=== PATIENT | female | born 1955 | race Caucasian/White ===

== ENCOUNTER 2017-03-24 07:30 | Inpatient (IN) ==
[2017-03-22 14:03] LABS: Basophils # (Auto) 0 K/mcL (0.0-0.3); Basophils % (Auto) 0.5 % (0.0-2.0); Eosinophils # (Auto) 0 K/mcL (0.0-0.7); Eosinophils % (Auto) 0.5 % (0.0-7.0); Granulocytes % (Auto) 57.4 % (38.0-78.0); Lymphocytes # (Auto) 1.8 K/mcL (1.5-4.8); Mean Cell Volume 95.3 fL (80.0-100.0); Mean Corpuscular HGB Conc 34.2 g/dL (31.0-36.0); Mean Corpuscular Hemoglobin 32.6 pg (26.0-34.0); Monocytes # (Auto) 0.6 K/mcL (0.1-0.9); Monocytes % (Auto) 10.6 % (1.0-12.0); Platelet Count 236 K/mcL (140-440); RBC 4.25 M/mcL (4.00-5.20); Red Cell Distribution Width 14.5 % (11.5-14.5)
[2017-03-22 14:39] LABS: Blood Urea Nitrogen 14 mg/dl (6-20)
[2017-03-22 14:58] LABS: Appearance,Urine CLEAR; Bilirubin,Urine NEG (NEG); Color,Urine YELLOW; Glucose,Urine (UA) NEGATIVE (NEG); Leukocyte Esterase,Urine NEG /uL (NEG); Nitrate,Urine NEG (NEG); Protein,Urine NEG (NEG); Specific Gravity,Urine 1.013 (1.000-1.035); Urine Blood NEG mg/dL (<0.03); Urobilinogen,Urine NEG (NEG)
[~2017-03-24 07:30] MED LIST: CELECOXIB 200 MG CAPSULE PO SCH; PREGABALIN 75 MG CAPSULE PO SCH; ceFAZolin 1 GM VIAL IV SCH; oxyCODONE 10 MG TAB.ER.12H PO SCH
[2017-03-24] MEDS ORDERED: KETOROLAC 30 MG, ROPIVACAINE HCL/PF 49.5 ML, EPINEPHrine 0.5 MG, 0.9 % SODIUM CHLORIDE ... IJ ONE (09:00)
[2017-03-24] MEDS ORDERED: ROPIVACAINE HCL/PF 20 ML VIAL IJ ONE (13:45)
[2017-03-24] MEDS ORDERED: DEXAMETHASONE 10 MG/ML VIAL IV ONE (13:45)
[2017-03-24] MEDS ORDERED: ONDANSETRON 4 MG/2 ML VIAL IV ONE (13:45)
[2017-03-24] MEDS ORDERED: PROPOFOL 200 MG/20 ML VIAL IV ONE (13:45)
[2017-03-24] MEDS ORDERED: TRANEXAMIC ACID 1,000 MG/10 ML VIAL IV ONE (13:45)
[2017-03-24] MEDS ORDERED: MIDAZOLAM 5 MG/5 ML VIAL IV ONE (13:45)
[2017-03-24] MEDS ORDERED: LIDOCAINE HCL/PF 100 MG/5 ML SYRINGE IV ONE (13:45)
[2017-03-24] MEDS ORDERED: LACTATED RINGERS 250 ML IV PRN (15:24)
[2017-03-24] MEDS ORDERED: ONDANSETRON 4 MG/2 ML VIAL IV PRN ×2 (15:24→15:41)
[2017-03-24] MEDS ORDERED: NALOXONE HCL 0.4 MG/ML VIAL IV PRN (15:24)
[2017-03-24] MEDS ORDERED: MEPERIDINE 25 MG/ML SYRINGE IV PRN (15:24)
[2017-03-24] MEDS ORDERED: FLUMAZENIL 0.1 MG/ML ML IV PRN (15:24)
[2017-03-24] MEDS ORDERED: METHOCARBAMOL 1,000 MG/10 ML VIAL IV PRN (15:24)
[2017-03-24] MEDS ORDERED: diphenhydrAMINE 50 MG/ML VIAL IV PRN (15:24)
[2017-03-24] MEDS ORDERED: IPRATROPIUM/ALBUTEROL 3 ML AMPUL.NEB NEB PRN (15:24)
[2017-03-24] MEDS ORDERED: HYDROmorphone 2 MG/ML SYRINGE IV PRN ×2 (15:24→15:41)
[2017-03-24] MEDS ORDERED: PROMETHAZINE 25 MG/ML VIAL IV PRN (15:24)
[2017-03-24] MEDS ORDERED: BENZOCAINE/MENTHOL 1 LOZENGE PO PRN ×2 (15:24→15:41)
[2017-03-24] MEDS ORDERED: fentaNYL 100 MCG/2 ML VIAL IV PRN (15:24)
[2017-03-24] MEDS ORDERED: LACTATED RINGERS 1,000 ML IV SCH (15:30)
--- NOTE | 2017-03-24 15:40 | Brief Operative Note ---
Date of procedure: 03/24/17 Pre-op diagnosis: Left knee severe DJD Post-op diagnosis: same Procedure: Left robotic assisted total knee arthroplasty hardware removal, deep, staple and screw Grafts/Implants: Yes ([place] Triathlon CR 3 femur 3 tibia, 9mm insert, 33 patella) Anesthesia: spinal, GLMA Findings: severe multicompartment osteoarthritis Complications: none Surgeon: Jamal Gomez Foundation Relations Manager: Darryn Bland Estimated blood loss (cc): 30 Specimens Removed/Pathology: none sent Condition: stable Disposition: PACU
[2017-03-24] MEDS ORDERED: POLYETHYLENE GLYCOL 3350 17 GM PACKET PO PRN (15:41)
[2017-03-24] MEDS ORDERED: BISACODYL 10 MG SUPP.RECT PR PRN (15:41)
[2017-03-24] MEDS ORDERED: MAGNESIUM HYDROXIDE 30 ML ORAL.SUSP PO PRN (15:41)
[2017-03-24] MEDS ORDERED: FLEETS ADULT ENEMA PR PRN (15:41)
[2017-03-24] MEDS ORDERED: TRANEXAMIC ACID 1,000 MG/10 ML VIAL IV SCH (15:41)
--- NOTE | 2017-03-24 16:33 | XRay Report ---
CLINICAL INFORMATION: Post-op total knee COMPARISON: None. FINDINGS: Total knee prostheses is anatomically aligned. No osseous abnormalities. Soft tissue swelling seen as expected IMPRESSION: Negative Interpreted and Authenticated by: Hernan Gaines 03/24/17
[2017-03-24] MEDS: 0.9 % SODIUM CHLORIDE 1,000 ML IV SCH (17:44)
[2017-03-24] MEDS: KETOROLAC 30 MG/ML VIAL IV SCH (17:50)
[2017-03-24] MEDS: PRAMIPEXOLE 0.25 MG TABLET PO SCH (21:13)
[2017-03-24] MEDS: ceFAZolin 1 GM VIAL IV SCH (21:13)
[2017-03-24] MEDS: SENNOSIDES 1 TABLET PO SCH (21:13)
[2017-03-24] MEDS: DOCUSATE SODIUM 100 MG CAPSULE PO SCH (21:13)
[2017-03-24] MEDS: traZODone HCL 150 MG TABLET PO SCH (21:13)
[2017-03-24] MEDS: oxyCODONE/APAP 5/325MG TABLET PO PRN (21:13)
[2017-03-24] MEDS: ASPIRIN 325 MG ENTERIC COATED TABLET PO SCH (21:13)
[2017-03-24] MEDS: 0.9 % SODIUM CHLORIDE 10 ML SYRINGE IV SCH (21:33)
[2017-03-25] MEDS: KETOROLAC 30 MG/ML VIAL IV SCH ×4 (00:03→17:52)
[2017-03-25] MEDS: traMADol 50 MG TABLET PO PRN ×3 (01:30→16:35)
[2017-03-25] MEDS: 0.9 % SODIUM CHLORIDE 1,000 ML IV SCH ×3 (03:14→23:56)
[2017-03-25] MEDS: ceFAZolin 1 GM VIAL IV SCH (04:40)
[2017-03-25] MEDS: oxyCODONE/APAP 5/325MG TABLET PO PRN ×3 (04:40→15:07)
[2017-03-25] MEDS: 0.9 % SODIUM CHLORIDE 10 ML SYRINGE IV SCH ×3 (05:45→21:00)
[2017-03-25] MEDS: PANTOPRAZOLE 40 MG TABLET PO SCH (07:20)
--- NOTE | 2017-03-25 07:41 | Discharge Summary ---
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 Chief Complaint: [] Discharge date: 03/26/17 Hospitalization Hospital course: Pt was admitted for a TkA, she underwent the procedure the day of admission. She was discharged on post-op day 2 with appropriate pain meds, aspirin for DVT prophylaxis and PT orders. She will f/u at [facility] in 10-14 days. Discharge diagnosis: L knee osetoarthrosis Exam - Exam Clean and dry: Yes Weight bearing status: as tolerated Ortho Discharge - TKA - Patient Instructions Diet: Regular Diet Activity: activity as tolerated Total Knee Protocol: For Total Knee: Start ROM AARON with stationary bike or rocking chair. Work on gaining full extension of knee. Posterior dislocation precautions provided. Hip abductor strengthening and gait training instructions provided. Apply Cryocuff as instructed. Dressing Care: May shower in 2 days - Follow Up Plan Follow Up Appointments: Jamal Gomez MD [Physician] - 04/08/17 10:00 am Disposition: Home, Self-Care Prognosis: Good Rehab Potential: Good Overall status at discharge: patient is progressing back to baseline - Orders For Discharge Prescriptions: Aspirin [Ecotrin] 325 mg PO BID #30 tab.ec HYDROcodone/ACETAMINOPHEN [[place] 10-325 Tablet] 1 - 2 each PO Q4 #100 tab Pending Studies Resuscitation Status Full Code Diet Regular Diet Start WedMar 24 Dinner Aspirin (Ecotrin) 325 mg PO BID [facility] Last Admin: 03/24/17 21:13 Dose: 325 mg Docusate Sodium (Colace) 100 mg PO BID [facility] Last Admin: 03/24/17 21:13 Dose: 100 mg Hydromorphone HCl (Dilaudid) 0 mg IV Q2HP PRN PRN Reason: Pain Last Admin: 03/25/17 03:14 Dose: 0.5 mg Sodium Chloride (Sodium Chloride 0.9%) 1,000 mls @ 100 mls/hr IV .Q10H PAULO Last Admin: 03/25/17 03:14 Dose: 100 mls/hr Infusion: 03/25/17 03:14 Dose: 100 mls/hr Admin: 03/24/17 17:44 Dose: 100 mls/hr Ketorolac Tromethamine (Toradol) 30 mg IV Q6 [facility] Stop: 03/26/17 12:01 Last Admin: 03/25/17 05:43 Dose: 30 mg Admin: 03/25/17 00:03 Dose: 30 mg Admin: 03/24/17 17:50 Dose: 30 mg Oxycodone/Acetaminophen (Percocet 5-325 Mg) 0 tab PO Q4HP PRN PRN Reason: Pain Last Admin: 03/25/17 04:40 Dose: 2 tab Admin: 03/24/17 21:13 Dose: 2 tab Pantoprazole Sodium (Protonix) 40 mg PO QAMAC [facility] Last Admin: 03/25/17 07:20 Dose: 40 mg Pramipexole Dihydrochloride (Mirapex) 0.5 mg PO HS [facility] Last Admin: 03/24/17 21:13 Dose: 0.5 mg Senna (Senokot) 2 tab PO [facility] Last Admin: 03/24/17 21:13 Dose: 2 tab Sodium Chloride (Saline Flush) 10 ml IV Q8 [facility] Last Admin: 03/25/17 05:45 Dose: 10 ml Admin: 03/24/17 21:33 Dose: Not Given Tramadol HCl (Ultram) 50 mg PO Q6HP PRN PRN Reason: Pain Last Admin: 03/25/17 01:30 Dose: 50 mg Trazodone HCl (Desyrel) 150 mg PO [facility] Last Admin: 03/24/17 21:13 Dose: 150 mg Shift Summary 03/25/17 03:35 Shift Summary by Neftaly Naik on RA. EMY wrap dressing to left knee CDI. Pt states she has all sensation back in left leg. IV to left hand running NS @ 100mL/hr. Plan to SL before shift change. Tolerating oral fluids and diet w/no complaints of nausea this shift. Voiding per BR. Last bladder scan was 12mL @ 2350. Minimally incontinent of bladder x2 at beginning of shift, has not been incontinent since. Ambulates w /FWW and SBA. Can make all major body movements to get oob. Sometimes requires a bit of assistance going from sit to stand. C/o pain w/ambulation that subsides when laying in bed. Dilaudid 0.5mg IV @ 0315. Scheduled Toradol. Received Percocet x1 and tramadol x1. Pt states Percocet keeps her up at night. Uses IS on own, up to 2,000. Pt states she will not have a ride home till Wednesday. Initialized on 03/25/17 03:35 - END OF NOTE
[2017-03-25] MEDS: VITAMIN D3 5,000 UNIT CAPSULE PO SCH (07:55)
[2017-03-25] MEDS: DOCUSATE SODIUM 100 MG CAPSULE PO SCH ×2 (07:55→21:01)
[2017-03-25] MEDS: ASPIRIN 325 MG ENTERIC COATED TABLET PO SCH ×2 (07:55→21:01)
[2017-03-25] MEDS: FLUTICASONE PROPIONATE SPRAY.NAS NS SCH (07:58)
[2017-03-25] MEDS: LEVOCETIRIZINE DIHYDROCHLORIDE 5 MG PO SCH (08:00)
[2017-03-25] MEDS ORDERED: BIOTIN 1 MG PO SCH (09:00)
[2017-03-25] MEDS ORDERED: UBIDECARENONE 50 MG PO SCH (09:00)
--- NOTE | 2017-03-25 13:48 | Operative Note ---
DATE OF OPERATION: 03/24/2017 PREOPERATIVE DIAGNOSIS: Left knee severe osteoarthritis. POSTOPERATIVE DIAGNOSIS: Left knee severe osteoarthritis. PROCEDURE PERFORMED: 1. Left robotic-assisted total knee arthroplasty using the [place] Triathlon size 3 cruciate retaining femoral component, size 3 tibial baseplate, a 33 mm patellar button with a 9 mm X3 tibial insert. 2. Hardware removal of tibial staple and tibial interference screw, deep. SURGEON: Jamal Gomez M.D. EXECUTIVE ADMINISTRATIVE ASST: Alfred Bland PA-C. ANESTHESIA: Spinal plus general. DRAINS: None. SPECIMENS: Tibial staple and tibial interference screw. BLOOD LOSS: 30 mL. COMPLICATIONS: None. POSTOPERATIVE CONDITION: Stable. INDICATIONS FOR SURGERY: This is a 61-year-old female who had a history of ACL tear with reconstruction. She had worsening pain. Radiographs showed advanced osteoarthritis. FINDINGS AT SURGERY: She had full-thickness cartilage loss. Post-reconstruction showed good overall limb alignment, patellar tracking, and joint stability. PROCEDURE IN DETAIL: The patient had been seen preoperatively. Informed consent had been obtained after discussion of risks and benefits of surgery. Risks including, but not limited to, bleeding, possibly requiring transfusion; infection, possibly requiring implant removal and prolonged IV antibiotics; injury to nerves, blood vessels, and other surrounding structures; anesthetic risks; DVT and pulmonary embolus risks; stiffness; swelling; pain; instability; possibility of needing further revision surgery. She understood these risks and wished to proceed. Correct operative site was marked and then patient received spinal anesthesia. She was then taken to the operating room and LMA general given. The left lower extremity was carefully prepped and draped in normal sterile fashion, and a time-out was performed verifying patient name, operative site, and plan. Esmarch was used to exsanguinate the extremity and tourniquet was inflated. A midline incision was made with scalpel through skin and subcutaneous tissue, and then Irrisept was irrigated. A medial parapatellar arthrotomy was performed, and a subperiosteal exposure was done of the anterior medial tibia exposing the staple and interference screw. We used an osteotome to pry the staple out and then screwdriver was used to back the interference screw out. We then did a subperiosteal exposure of the anterior cortex of the distal femur. Anterior horns of the menisci were excised, as well as the ACL was transected. We made two stab incisions over the femur and two over the tibia, and then bicortical pins were placed and the arrays were connected. We then placed our femoral and tibial check point. Hip center of rotation was checked. Medial and lateral malleoli were checked with the green probe and then double-checks were done of the femoral and tibial check points. We then used the blue probe to do our mapping. Once this was completed, the rongeur was used to remove osteophytes. Once this was done, we then used our spoons to check our flexion and extension gaps, and we adjusted our implants to get as close to symmetrical measurements of all four numbers. Once we liked our positioning, we then used the robotic assistance to make our femoral and tibial cuts. We then positioned the tibia with as much external rotation as bony coverage would allow and pinned this into place. We used a boss reamer and keel punch to prepare and then a keeled tibial trial was placed. Femur was elevated and curved osteotome used to remove posterior osteophytes. We then placed our femoral component, pinned this into place and drilled our peg holes. A 9 trial insert was placed which was very snug. The knee was taken into extension. We prepared the patella, freehand resection. We medialized 33 as much as bone coverage would allow and then drilled. A 32 trial was placed and a limited lateral facetectomy performed. The knee was taken through range of motion and was very stable, so we went ahead and removed trial implants while definitive implants were opened. We filled the joint with Irrisept. After waiting a minute, we pulse lavaged copiously with saline and then a CO2 gun was used to clean the cancellous bone surfaces. We then placed antibiotic cement on the cut bone surfaces and cemented the implants. The trial 9 insert was placed. The knee was taken into extension and excess cement was removed. The patellar button was also cemented. We then filled the joint with Irrisept and injected pain cocktail into the pericapsular and subcutaneous tissues. The leg was held in full extension until cement had fully hardened. We flexed the knee up and removed the trial insert. Definitive insert was opened. Posterior medial capsule was injected with some pain cocktail and then Irrisept irrigated, and then the insert was impacted. Checkpoints were removed and then we pulse lavaged copiously with saline. A #2 FiberWire interrupted [id number] were used around the superior quadrant of the patella with the knee in about 45 degrees of flexion. A #1 Vicryl interrupted [id number] were used around the inferior pole. Running #1 Vicryl was used for patellar tendon and quad tendon, and then luli for skin. Pins were removed and luli used for pin sites. Xeroform and sterile dressing placed and tourniquet was released. The patient was awakened, extubated, and transferred to recovery in stable condition. KRYSTEN:jaqueline Job ID: [id number] Doc ID: [id number] Jamal Gomez MD
[2017-03-25] MEDS: SENNOSIDES 1 TABLET PO SCH (21:01)
[2017-03-25] MEDS: PRAMIPEXOLE 0.25 MG TABLET PO SCH (21:01)
[2017-03-25] MEDS: traZODone HCL 150 MG TABLET PO SCH (21:01)
[2017-03-26] MEDS: KETOROLAC 30 MG/ML VIAL IV SCH ×3 (00:02→12:14)
[2017-03-26] MEDS: 0.9 % SODIUM CHLORIDE 10 ML SYRINGE IV SCH ×3 (00:03→14:08)
[2017-03-26] MEDS: oxyCODONE/APAP 5/325MG TABLET PO PRN ×3 (00:06→14:51)
--- NOTE | 2017-03-26 07:43 | Orthopedic Progress Note ---
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 Chief Complaint: [no c/o badages c/d/i nvi-distal Vital Signs Temp Pulse Resp BP BP Pulse Ox 03/26/17 06:44 97.3 F 16 125/80 94 03/26/17 04:00 97.3 F 66 16 128/75 95 03/26/17 00:00 98.1 F 74 14 118/73 93 03/25/17 20:00 97.8 F 68 14 125/79 99 03/25/17 17:20 97.6 F 20 112/78 96 03/25/17 13:40 97.1 F 20 125/79 94 03/25/17 07:43 97.1 F 20 128/80 94 Intake and Output 03/25/17 03/26/17 03/26/17 21:59 05:59 13:59 Intake Total 1040 / 1040 400 / 400 Output Total 1700 / 1700 1350 / 1350 200 / 200 Balance -660 / -660 -950 / -950 -200 / -200 Intake: Oral 1040 / 1040 400 / 400 Output: Void Amount 1700 / 1700 1350 / 1350 200 / 200 Other: # Voids 1 # Bowel Movements 1 Weight 224 lb Laboratory Results - last 24 hr 03/26/17 04:15 Hgb 12.3 Hct 36.3 s/p L TKA-stable discharge to home today]
[2017-03-26] MEDS: PANTOPRAZOLE 40 MG TABLET PO SCH (08:52)
[2017-03-26] MEDS: ASPIRIN 325 MG ENTERIC COATED TABLET PO SCH (08:52)
[2017-03-26] MEDS: DOCUSATE SODIUM 100 MG CAPSULE PO SCH (08:52)
[2017-03-26] MEDS: VITAMIN D3 5,000 UNIT CAPSULE PO SCH (08:52)
[2017-03-26] MEDS: FLUTICASONE PROPIONATE SPRAY.NAS NS SCH (10:30)
[2017-03-26] MEDS: LEVOCETIRIZINE DIHYDROCHLORIDE 5 MG PO SCH (10:30)
--- NOTE | 2017-03-26 13:16 | Orthopedic Progress Note ---
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 Chief Complaint: [] Principal diagnosis: s/p L total knee Interval history: no c/o Objective Vital signs: Vital Signs Temp Pulse Resp BP BP Pulse Ox 03/26/17 11:56 98.5 F 74 16 102/70 98 03/26/17 06:44 97.3 F 16 125/80 94 03/26/17 04:00 97.3 F 66 16 128/75 95 03/26/17 00:00 98.1 F 74 14 118/73 93 03/25/17 20:00 97.8 F 68 14 125/79 99 03/25/17 17:20 97.6 F 20 112/78 96 03/25/17 13:40 97.1 F 20 125/79 94 Intake and Output 03/25/17 03/26/17 03/26/17 21:59 05:59 13:59 Intake Total 1040 / 1040 400 / 400 300 / 300 Output Total 1700 / 1700 1350 / 1350 600 / 600 Balance -660 / -660 -950 / -950 -300 / -300 Intake: Oral 1040 / 1040 400 / 400 300 / 300 Output: Void Amount 1700 / 1700 1350 / 1350 600 / 600 Other: Meal Breakfast Percent of Meal Consumed 75% Feeding Ability Independent # Voids 1 # Bowel Movements 1 1 Weight 224 lb Intake & Output: Intake & Output 03/25/17 03/26/17 03/26/17 21:59 05:59 13:59 Intake Total 1040 / 1040 400 / 400 300 / 300 Output Total 1700 / 1700 1350 / 1350 600 / 600 Balance -660 / -660 -950 / -950 -300 / -300 Weight 224 lb Intake: Oral 1040 / 1040 400 / 400 300 / 300 Output: Void Amount 1700 / 1700 1350 / 1350 600 / 600 Other: Meal Breakfast Percent of Meal Consumed 75% Feeding Ability Independent # Voids 1 # Bowel Movements 1 1 Neurological exam IM: Yes alert, Yes oriented X3 - Labs CBC & BMP: 03/26/17 04:15 03/22/17 12:49 Labs: Orthopedic Labs 03/22/17 12:49 PT 13.8 INR 1.0 03/26/17 03/25/17 03/22/17 04:15 05:05 12:49 Hgb 12.3 13.4 13.8 Hct 36.3 40.0 40.5 Assessment and Plan (1) Status post total left knee replacement POD#2-stable -d/c home today Status: Acute
== END 2017-03-26 14:55 | disposition home or self-care (01) | DRG 470 ==
LOC: MEDSUR 09:22
PROVIDERS: ADMIT Orthopaedic Surgery; ATTEND Orthopaedic Surgery